=== PATIENT | male | born 1990 | race Caucasian/White ===

== ENCOUNTER 2017-01-16 01:14 | Emergency (ER) | payer MEDICAID, OTHER ==
--- NOTE | 2017-01-16 02:17 | EDM.PDOC ---
ED HPI GENERAL MEDICAL PROBLEM - General Chief Complaint: Behavioral/Psych Stated Complaint: NECK PAIN Time Seen by Provider: 01/16/17 02:13 - History of Present Illness INITIAL COMMENTS - FREE TEXT/NARRATIVE: HISTORY AND PHYSICAL: History of present illness: Patient 26-year-old white male presents status post attempting from the [facility] there is no loss of consciousness no other trauma or concern and upon arrival patient is in no distress Review of systems: As per history of present illness and below otherwise all systems reviewed and negative. Past medical history: As per history of present illness and as reviewed below otherwise noncontributory. Surgical history: As per history of present illness and as reviewed below otherwise noncontributory. Social history: No reported history of drug or alcohol abuse. Family history: As per history of present illness and as reviewed below otherwise noncontributory. Physical exam: HEENT: Atraumatic, normocephalic, pupils reactive, negative for conjunctival pallor or scleral icterus, mucous membranes moist, throat clear, neck supple, nontender, trachea midline. There is no significant ligature junior no soft tissue swelling ecchymosis or tenderness noted Lungs: Clear to auscultation, breath sounds equal bilaterally, chest nontender. Heart: S1S2, regular, negative for clicks, rubs, or JVD. Abdomen: Soft, nondistended, nontender. Negative for masses or hepatosplenomegaly. Negative for costovertebral tenderness. Pelvis: Stable nontender. Genitourinary: Deferred. Rectal: Deferred. Extremities: Atraumatic, negative for cords or calf pain. Neurovascular unremarkable. Neuro: Awake, alert, oriented. Cranial nerves II through XII unremarkable. Cerebellum unremarkable. Motor and sensory unremarkable throughout. Exam nonfocal. Diagnostics: X-ray cervical spine Therapeutics: None Impression: #1 medical screening exam #2 observation status post attempted hanging Definitive disposition and diagnosis as appropriate pending reevaluation and review of above. neck area Pain Score (Numeric/FACES): 3 - Related Data Allergies Allergy/AdvReac Type Severity Reaction Status Date / Time No Known Allergies Allergy Verified 01/16/17 01:37 Home Meds: Home Meds . [No Known Home Meds] 01/06/15 [History] Past Medical History - Past Health History Medical/Surgical History: Denies Medical/Surgical History HEENT History: Reports: None Cardiovascular History: Reports: None Respiratory History: Reports: COPD Gastrointestinal History: Reports: None Genitourinary History: Reports: None Musculoskeletal History: Reports: None Neurological History: Reports: None Psychiatric History: Reports: Anxiety, Dementia, Suicide attempt, Suicidal ideation Endocrine/Metabolic History: Reports: None Hematologic History: Reports: None Immunologic History: Reports: None Oncologic (Cancer) History: Reports: None Dermatologic History: Reports: None - Infectious Disease History Infectious Disease History: Reports: None Social & Family History - Family History Family Medical History: Noncontributory - Tobacco Use Smoking Status *Q: Current Every Day Smoker Years of Tobacco use: 15 Packs/Tins Daily: 2 - Caffeine Use Caffeine Use: Reports: None - Alcohol Use Days Per Week of Alcohol Use: 0 - Recreational Drug Use Recreational Drug Use: Yes Drug Use in Last 12 Months: Yes Recreational Drug Type: Reports: Marijuana/Hashish ED ROS GENERAL - Review of Systems Review Of Systems: ROS reveals no pertinent complaints other than HPI. ED EXAM, GENERAL - Physical Exam Exam: See Below (See dictation) Course - Vital Signs Last Recorded V/S: Last Vital Signs Temp 36.1 C 01/16/17 01:37 Pulse 90 01/16/17 01:37 Resp 16 01/16/17 01:37 BP 123/71 01/16/17 01:37 Pulse Ox 98 01/16/17 01:37 - Orders/Labs/Meds Orders: Active Orders 24 hr Category Date Time Status Cervical Spine 2V or 3V [CR] Stat Exams 01/16/17 01:24 Ordered Neck Soft Tissue [CR] Stat Exams 01/16/17 01:24 Ordered Departure - Departure Time of Disposition: 02:16 Disposition: Home, Self-Care 01 Condition: good Clinical Impression: Encounter for medical screening examination, Suicide attempt by hanging Forms: ED Department Discharge Additional Instructions: The following information is given to patients seen in the emergency department who are being discharged to home. This information is to outline your options for follow-up care. We provide all patients seen in our emergency department with a follow-up referral. The need for follow-up, as well as the timing and circumstances, are variable depending upon the specifics of your emergency department visit. If you don't have a primary care physician on staff, we will provide you with a referral. We always advise you to contact your personal physician following an emergency department visit to inform them of the circumstance of the visit and for follow-up with them and/or the need for any referrals to a consulting specialist. The emergency department will also refer you to a specialist when appropriate. This referral assures that you have the opportunity for followup care with a specialist. All of these measure are taken in an effort to provide you with optimal care, which includes your followup. Under all circumstances we always encourage you to contact your private physician who remains a resource for coordinating your care. When calling for followup care, please make the office aware that this follow-up is from your recent emergency room visit. If for any reason you are refused follow-up, please contact the [facility] emergency department at and asked to speak to the emergency department charge nurse. Call primary medical doctor one to 2 days in [facility] precautions regarding suicide return as needed as discussed - My Orders Last 24 Hours: My Active Orders 01/16/17 01:24 Cervical Spine 2V or 3V [CR] Stat Neck Soft Tissue [CR] Stat - Assessment/Plan Last 24 Hours: My Active Orders 01/16/17 01:24 Cervical Spine 2V or 3V [CR] Stat Neck Soft Tissue [CR] Stat
[2017-01-16 02:36] VITALS: BP 117/69
--- NOTE | 2017-01-17 10:40 | CR ---
EXAM DATE: 01/16/17 PATIENT'S AGE: 26 Patient: OMAR FERNANDEZ Facility: [place], [place] Site . Site : 1990 Study: XRay Spine Cervical [id number]/23/2017 1:42:59 AM Ordering Physician: Doctor Chamberlain Final Report: INDICATION: Attempted hanging. TECHNIQUE: Cervical spine 4 view. COMPARISON: None. FINDINGS: No evidence of acute fracture or malalignment. No additional osseous abnormality. Prevertebral soft tissues and airway as imaged are unremarkable. IMPRESSION: No acute osseous abnormality. Dictated by Gilbert Ayers MD @ 01/16/2017 2:07:49 AM Dictated by: Gilbert Ayers MD @ 01/16/2017 02:07:53 (Electronic Signature) Report Signed by Proxy and Original Signed Document filed in the Medical Record. VALENTINO
== END 2017-01-16 02:35 | disposition home or self-care (01) ==
LOC: MW.ED 01:14
DX: T71.162A Asphyxiation due to hanging, intentional self-harm, initial encounter (principal); J44.9 Chronic obstructive pulmonary disease, unspecified; F41.9 Anxiety disorder, unspecified; F03.90 Unspecified dementia, unspecified severity, without behavioral disturbance, psychotic disturbance, mood disturbance, and anxiety; F17.210 Nicotine dependence, cigarettes, uncomplicated
CPT/HCPCS: 72040; 72040-26; 99283